=== PATIENT | male | born 1960 | race Caucasian/White ===

== ENCOUNTER 2017-06-12 15:09 | Emergency (ER) | payer MEDICAID, OTHER ==
[~2017-06-12] VITALS: Ht 165.1 cm; Wt 86.2 kg
--- NOTE | 2017-06-12 15:09 | NUR ---
RBIAN OWENS 58 FROM HOME, SISTER CALLED 911, 89 Y/O MOM CAN NO LONGER TAKE CARE OF HIM.
[2017-06-12 16:08] LABS: EOSINOPHILS % (AUTO) 0.5 % (0.0-6.0); HEMATOCRIT 46 % (39-51); HEMOGLOBIN 15.4 g/dL (13.5-17.5); LYMPHOCYTES # (AUTO) 2.4 /CMM (0.8-4.8); MEAN CORPUSCULAR HEMOGLOBIN 30 PG (26.0-33.0); MEAN CORPUSCULAR HGB CONC 34 g/dl (31.0-36.0); MEAN CORPUSCULAR VOLUME 90 fL (80-96); MONOCYTES # (AUTO) 0.6 /CMM (0.1-1.30); MONOCYTES % (AUTO) 6.1 % (2.0-12.0); NEUTROPHILS # (AUTO) 6.3 /CMM (1.8-8.9); NEUTROPHILS % (AUTO) 67.4 % (43.0-81.0); PLATELET COUNT (AUTO) 190 /CMM (150-450); RDW COEFFICIENT OF VARIATION 12.9 (11.5-15.0); RED BLOOD CELL COUNT(AUTO) 5.12 MIL/uL (4.5-6.0); WHITE BLOOD COUNT (AUTO) 9.3 K/uL (4.3-11.0)
[2017-06-12 16:17] LABS: CALCIUM, SERUM 8.8 mg/dL (8.5-10.1); CARBON DIOXIDE 25 mmol/L (21-32); CHLORIDE 104 mmol/L (98-107); CREATININE 1.3 mg/dL (0.6-1.3); GLUCOSE 127 mg/dL (74-106); POTASSIUM 3.4 mmol/L (3.5-5.1); SODIUM SERUM 139 mmol/L (136-145); UREA NITROGEN, BLOOD 17 mg/dL (7-18)
--- NOTE | 2017-06-12 16:27 | NUR ---
PT TAKEN TO CT
[2017-06-12 16:28] LABS: THYROID STIMULATING HORMONE 1.342 uIU/mL (0.358-3.74)
[2017-06-12] MEDS ORDERED: SERT50TA PO (16:28)
[2017-06-12] MEDS ORDERED: CARB-93 PO (16:28)
[2017-06-12] MEDS ORDERED: MEMA10TA PO (16:28)
[2017-06-12] MEDS ORDERED: LORA0.5T PO (16:28)
[2017-06-12 16:30] LABS: ACETAMINOPHEN 0 ug/ml (10-30); ALANINE AMINOTRANSFERASE 10 U/L (12-78); ALBUMIN 3.8 g/dL (3.4-5.0); ALCOHOL, BLOOD < 3 mg/dL (0-0); ALKALINE PHOSPHATASE 85 U/L (46-116); ASPARTATE AMINOTRANSFERASE 18 U/L (15-37); BILIRUBIN,DIRECT 0.1 mg/dL (0.0-0.2); BILIRUBIN,TOTAL 0.6 mg/dL (0.2-1.0); SALICYLATE 1.9 mg/dL (2.8-20.0); TOTAL PROTEIN, SERUM 7.3 g/dL (6.4-8.2)
--- NOTE | 2017-06-12 16:52 | NUR ---
VERBAL ORDER STRAIGHT CATH IN AND OUT FROM DR BARRAZA
[2017-06-12 17:18] LABS: APPEARANCE,URINE Clear (CLEAR); BILIRUBIN,URINE Negative (NEGATIVE); BLOOD, URINE Moderate Ery/uL (NEGATIVE); COLOR,URINE Yellow (YELLOW); KETONES,URINE Trace (NEGATIVE); LEUKOCYTE ESTERASE ,URINE Negative (NEGATIVE); NITRITE, URINE Negative (NEGATIVE); PH,URINE 5.5 (5.0-8.0); PROTEIN,URINE Negative (NEGATIVE); UGLUCOSE Negative (NEGATIVE); UROBILINOGEN,URINE 0.2 EU/dL (0.2)
[2017-06-12 17:38] LABS: WBC,URINE 0-2 /HPF (0-3)
[2017-06-12 17:39] LABS: BACTERIA,URINE None seen /HPF (None Seen); SQUAMOUS EPITHELIAL CELL,UR None Seen /HPF (None Seen)
--- NOTE | 2017-06-12 18:20 | NUR ---
PT TAKEN TO CT SCAN VIA [facility]
--- NOTE | 2017-06-12 18:44 | NUR ---
CALLED [facility], SHE SAID SHE WOULD BE HERE SHORTLY.
--- NOTE | 2017-06-12 19:17 | NUR ---
pt was brought into ct scanner withpt's sister. we tried and put the pt on the scanner. even sister agreed that he is not able to hold still. we are waiting for furthur instructions and meds from er.
--- NOTE | 2017-06-12 19:23 | NUR ---
GAVE REPORT TO RAFAEL FOR [facility]
--- NOTE | 2017-06-12 19:29 | NUR ---
CALLED [facility] BOARD HANDLER WAS PAGED.
--- NOTE | 2017-06-12 19:52 | NUR ---
DR BARRAZA ON THE PHONE WITH DR LYLE.
--- NOTE | 2017-06-12 20:07 | NUR ---
PT ASSIGNED TO [facility]
[2017-06-12 20:19] VITALS: BP 130/98
--- NOTE | 2017-06-12 20:20 | NUR ---
PATIENT TRANSPORTED TO [facility]. S
--- NOTE | 2017-06-12 20:20 | NUR ---
REPORT GIVEN TO FLOOR RN FOR MA[facility]
--- NOTE | 2017-06-12 20:53 | NUR ---
ADMISSION TO [facility] CANCELLED
--- NOTE | 2017-06-12 21:00 | NUR ---
[facility] CALLED AND SAID THE PATIENT WOULD BE ACCEPTED BY DR GALARZA. THEY WOULD CALL BACK WHEN A BED IS AVAILABLE.
--- NOTE | 2017-06-12 21:14 | NUR ---
CAMRYN FROM [facility] CALLED PATIENT WILL BE ACCEPTED TO BED [address] HALL
--- NOTE | 2017-06-12 21:38 | NUR ---
CALLED [facility] FOR TRANSPORT, ETA OF 1HR AND HALF WAS GIVEN.
--- NOTE | 2017-06-12 21:44 | NUR ---
REPORT GIVEN TO ENGINEERING CLERK-- CAMRYN FROM [facility].
--- NOTE | 2017-06-12 21:54 | NUR ---
REPORT GIVEN TO KELLY DEVRIES FROM [facility] FOR [facility]
--- NOTE | 2017-06-12 22:41 | NUR ---
PATIENT WAS PICKED UP BY [facility] EMT. [facility]
== END 2017-06-12 22:42 | disposition short-term general hospital (02) ==
LOC: ER 15:10
DX: R62.7 Adult failure to thrive (principal); F03.90 Unspecified dementia, unspecified severity, without behavioral disturbance, psychotic disturbance, mood disturbance, and anxiety; F41.0 Panic disorder [episodic paroxysmal anxiety]; R41.82 Altered mental status, unspecified
CPT/HCPCS: 36415; 70450-TC; 71010-TC; 80048-TC; 80076-TC; 80305; 81000-TC; 84443-TC; 85025-TC; 87086-TC; A4606; G0480; J2060; J3486; J7030; Z7610